=== PATIENT | male | born 1955 | race Caucasian/White ===

== ENCOUNTER → 2018-06-02 | Emergency (ER) | payer OTHER ==
[~2018-06-02] VITALS: Ht 167.6 cm; Wt 79.4 kg
== END | disposition home or self-care (01) ==
LOC: ER 12:05
DX: Z48.02 Encounter for removal of sutures (principal)

== ENCOUNTER → 2024-06-21 | Outpatient (CLI) | payer OTHER ==
[~2024-06-21] MED LIST: DICLOFENAC POTA50 MG PO
== END | disposition home or self-care (01) ==
LOC: SONOGRAMA 08:04
PROVIDERS: ATTEND Specialist
DX: M25.511 Pain in right shoulder (principal); R79.89 Other specified abnormal findings of blood chemistry